=== PATIENT | male | born 1980 | race Caucasian/White ===

== ENCOUNTER 2018-08-12 09:31 | Outpatient (REF) | payer MEDICARE, OTHER, SELFPAY ==
[2018-08-12 12:42] LABS: Abs Immature Grans 0.02 k/cumm (0.0-0.09); Absolute Basophil Count 0.07 k/cumm (0.0-0.2); Absolute Eosinophil Count 0.75 k/cumm (0.0-0.7); Absolute Lymphocyte Count 2.42 k/cumm (1.2-3.4); Absolute Monocyte Count 0.98 k/cumm (0.11-0.7); Absolute Neutrophil Count 6.08 k/cumm (1.2-6.7); Basophils % 0.7; Eosinophils % 7.3; HCT 45.6 % (40.0-50.0); HGB 15.3 g/dL (13.5-17.5); Immature Grans % 0.2; Lymphocytes % 23.4; Mean Corp. HGB Concentration 33.6 g/dL (32.0-36.0); Mean Corpuscular Hemoglobin 30.8 pg (27.0-33.0); Mean Corpuscular Volume 91.9 fL (80-95); Mean Platelet Volume 10.5 fL (8.0-11.0); Monocytes % 9.5; Neutrophils % 58.9; Platelet Count 219 x1000/uL (130-400); RBC 4.96 m/cumm (4.50-6.00); RBC Distribution Width 13.1 % (11.8-14.1); White Blood Cell Count 10.32 k/cumm (4.4-10.8)
[2018-08-12 13:06] LABS: ALT 30 U/L (12-78); AST 18 U/L (15-37); Albumin 3.9 g/dL (3.4-5.0); Alkaline Phosphatase 81 U/L (46-116); Anion Gap 7.2 mmol/L (3-11); BUN 15 mg/dL (7-18); Bilirubin, Total 0.5 mg/dL (0.2-1.0); CO2 26.8 mmol/L (21.0-32.0); CREATININE 1.44 mg/dL (0.70-1.30); Calcium 9.1 mg/dL (8.5-10.1); Chloride 106 mmol/L (98-107); Estimated GFR 55.51 (mL/min/1.73m2); Glucose 83 mg/dL (70-100); Magnesium 1.4 mg/dL (1.8-2.4); PHOSPHORUS 2.8 mg/dL (2.6-4.7); Potassium 4.7 mmol/L (3.5-5.1); Sodium 140 mmol/L (136-145); Uric Acid 5.3 mg/dL (3.5-7.2)
== END 2018-08-12 09:51 ==
LOC: NCHCN 09:31
PROVIDERS: PCP Nurse Practitioner Family; Visit Provider Nurse Practitioner Family
DX: J98.4 Other disorders of lung (principal); I26.99 Other pulmonary embolism without acute cor pulmonale; N18.5 Chronic kidney disease, stage 5; Z94.0 Kidney transplant status
CPT/HCPCS: 80053; 83735; 84100; 84550; 85025

== ENCOUNTER 2018-10-07 16:41 | Outpatient (REF) | payer MEDICARE, OTHER, SELFPAY ==
[2018-10-07 21:34] LABS: Abs Immature Grans 0.02 k/cumm (0.0-0.09); Absolute Basophil Count 0.05 k/cumm (0.0-0.2); Absolute Eosinophil Count 0.76 k/cumm (0.0-0.7); Absolute Lymphocyte Count 2.51 k/cumm (1.2-3.4); Absolute Neutrophil Count 5.98 k/cumm (1.2-6.7); Basophils % 0.5; Eosinophils % 7.4; HCT 44.6 % (40.0-50.0); HGB 15.1 g/dL (13.5-17.5); Immature Grans % 0.2; Lymphocytes % 24.6; Mean Corp. HGB Concentration 33.9 g/dL (32.0-36.0); Mean Corpuscular Hemoglobin 31.4 pg (27.0-33.0); Mean Corpuscular Volume 92.7 fL (80-95); Mean Platelet Volume 10.5 fL (8.0-11.0); Monocytes % 8.8; Neutrophils % 58.5; Platelet Count 258 x1000/uL (130-400); RBC 4.81 m/cumm (4.50-6.00); White Blood Cell Count 10.22 k/cumm (4.4-10.8)
[2018-10-07 21:46] LABS: PROTEIN 25.3 mg/dL (0.0-11.9)
[2018-10-07 21:49] LABS: ALT 29 U/L (12-78); AST 20 U/L (15-37); Alkaline Phosphatase 67 U/L (46-116); Anion Gap 9.2 mmol/L (3-11); BUN 15 mg/dL (7-18); Bilirubin, Total 0.4 mg/dL (0.2-1.0); CO2 26.8 mmol/L (21.0-32.0); CREATININE 1.43 mg/dL (0.70-1.30); Calcium 9.1 mg/dL (8.5-10.1); Chloride 106 mmol/L (98-107); Cholesterol 123 mg/dL (50-200); Estimated GFR 55.65 (mL/min/1.73m2); Glucose 85 mg/dL (70-100); HDL Cholesterol 41 mg/dL (40-60); LDL CHOLESTEROL 66 mg/dL (<100); Magnesium 1.3 mg/dL (1.8-2.4); Potassium 4.4 mmol/L (3.5-5.1); Sodium 142 mmol/L (136-145); Total Protein 6.8 g/dL (6.4-8.2); Triglyceride 113 mg/dL (30-150)
[2018-10-07 21:59] LABS: Albumin 3.7 g/dL (3.4-5.0); Uric Acid 5.6 mg/dL (3.5-7.2)
[2018-10-07 23:10] LABS: Creatinine,Urine 151.23 mg/dL
[2018-10-09 11:40] LABS: Calcium (Random Urine) 14.6 mg/dl
[2018-10-09 11:45] LABS: Magnesium Random Urine 9.7 mg/dl
[2018-10-10 15:03] LABS: 25-Hydroxy D Total 28 ng/mL; 25-Hydroxy D2 <4.0 ng/mL; 25-Hydroxy D3 28 ng/mL
== END 2018-10-07 17:01 ==
LOC: NCHCN 16:41
PROVIDERS: PCP Nurse Practitioner Family; Visit Provider Nurse Practitioner Family
DX: I10 Essential (primary) hypertension (principal); Z94.0 Kidney transplant status; Z79.01 Long term (current) use of anticoagulants
CPT/HCPCS: 80053; 80061; 82306; 83721; 83735; 82340; 82565; 84105; 84156; 84550; 85025

== ENCOUNTER 2018-10-08 16:46 | Outpatient (CLI) | payer MEDICARE, OTHER, SELFPAY ==
[2018-10-10 09:34] LABS: Parathyroid Hormone,Intact 87 pg/ml (19-88)
[2018-10-10 13:39] LABS: Tacrolimus 7.2 ng/ml
== END 2018-10-08 17:06 ==
PROVIDERS: PCP Nurse Practitioner Family; Visit Provider Nurse Practitioner Family
DX: N18.5 Chronic kidney disease, stage 5 (principal); Z94.0 Kidney transplant status; Z51.81 Encounter for therapeutic drug level monitoring; Z79.899 Other long term (current) drug therapy
CPT/HCPCS: 36415; 80197; 83970

== ENCOUNTER 2018-12-30 00:34 | Outpatient (CLI) | payer OTHER, MEDICARE, SELFPAY ==
--- NOTE | 2018-12-30 09:29 | DI.CT_ITS ---
SYMPTOM/DIAGNOSIS: PULMONARY NODULE, J98.4, TOBACCO ABUSE, F17.[address]: CT scan of the chest was performed following intravenous contrast administration. The pulmonary arteries are not well opacified to assess for evidence of pulmonary embolic disease. The thoracic aorta is of normal caliber. No aneurysmal dilatation is seen. Heart size is within normal limits. No significant pericardial effusion is present. No significant thoracic adenopathy is identified. The soft tissue in the anterior mediastinum appears stable. No significant pleural effusion or pneumothorax is identified. There are a few tiny blebs seen within the lungs. No pulmonary nodules are identified. The previously noted nodular density in the left lingula may have represented volume averaging. No acute infiltrates are seen. The tracheobronchial tree is unremarkable. No acute abnormalities are seen in the upper abdomen. The thoracic spine appears intact. IMPRESSION: No evidence of a pulmonary nodule or thoracic adenopathy.
[2018-12-30] MEDS: Omnipaque 350 MG/ML 100 ML BTL IJ (09:31)
== END 2018-12-30 00:54 ==
PROVIDERS: PCP Nurse Practitioner Family; Visit Provider Nurse Practitioner Family
DX: J98.4 Other disorders of lung (principal); F17.210 Nicotine dependence, cigarettes, uncomplicated
CPT/HCPCS: 71260; J3490

== ENCOUNTER 2019-01-06 09:13 | Outpatient (REF) | payer OTHER, MEDICARE, SELFPAY ==
[2019-01-06 12:42] LABS: Abs Immature Grans 0.02 k/cumm (0.0-0.09); Absolute Basophil Count 0.08 k/cumm (0.0-0.2); Absolute Eosinophil Count 0.74 k/cumm (0.0-0.7); Absolute Lymphocyte Count 2.04 k/cumm (1.2-3.4); Absolute Monocyte Count 0.89 k/cumm (0.11-0.7); Absolute Neutrophil Count 5.06 k/cumm (1.2-6.7); Basophils % 0.9; Eosinophils % 8.4; HCT 45.2 % (40.0-50.0); HGB 15.2 g/dL (13.5-17.5); Immature Grans % 0.2; Lymphocytes % 23.1; Mean Corp. HGB Concentration 33.6 g/dL (32.0-36.0); Mean Corpuscular Hemoglobin 31.1 pg (27.0-33.0); Mean Corpuscular Volume 92.4 fL (80-95); Mean Platelet Volume 10.6 fL (8.0-11.0); Monocytes % 10.1; Neutrophils % 57.3; Platelet Count 223 x1000/uL (130-400); RBC 4.89 m/cumm (4.50-6.00); RBC Distribution Width 12.9 % (11.8-14.1); White Blood Cell Count 8.83 k/cumm (4.4-10.8)
[2019-01-06 12:54] LABS: Bilirubin Negative (Negative); Blood Negative (Negative); Clarity Clear; Glucose Negative (Negative); Ketones Negative (Negative); Leukocyte Esterase Negative (Negative); Nitrite Negative (Negative); Urobilinogen 0.2 EU/dL (Up TO 0.2)
[2019-01-06 13:17] LABS: ALT 25 U/L (12-78); AST 19 U/L (15-37); Albumin 3.7 g/dL (3.4-5.0); Alkaline Phosphatase 77 U/L (46-116); Anion Gap 10.3 mmol/L (3-11); BUN 16 mg/dL (7-18); Bilirubin, Total 0.5 mg/dL (0.2-1.0); CO2 26.7 mmol/L (21.0-32.0); CREATININE 1.43 mg/dL (0.70-1.30); Chloride 103 mmol/L (98-107); Estimated GFR 55.65 (mL/min/1.73m2); Glucose 103 mg/dL (70-100); Magnesium 1.3 mg/dL (1.8-2.4); PHOSPHORUS 3.3 mg/dL (2.6-4.7); Potassium 4.3 mmol/L (3.5-5.1); Sodium 140 mmol/L (136-145); Total Protein 6.8 g/dL (6.4-8.2); Uric Acid 5.2 mg/dL (3.5-7.2)
[2019-01-06 13:31] LABS: COMMENT (LAB VIEW ONLY) 109.66 mg/dL; Microalb ug/mg Crea 113.4 ug/mg Cr
[2019-01-06 13:33] LABS: Bacteria Rare HPF (Negative); C & S Indicated? No; Casts Negative LPF (Negative); Crystals Negative HPF (Negative); Epithelial Cells Rare HPF (Negative); Mucus Negative (Negative); RBC Negative (0-2); WBC 0-2 HPF (0-5)
== END 2019-01-06 09:33 ==
LOC: NCHCN 09:13
PROVIDERS: PCP Nurse Practitioner Family; Visit Provider Nurse Practitioner Family
DX: I10 Essential (primary) hypertension (principal); Z94.0 Kidney transplant status
CPT/HCPCS: 80053; 81003; 81015; 82043; 82570; 83735; 84100; 84550; 85025

== ENCOUNTER 2019-03-17 11:48 | Outpatient (REF) | payer MEDICARE, SELFPAY ==
[2019-03-17 22:04] LABS: Magnesium 1.6 mg/dL (1.8-2.4)
== END 2019-03-17 12:08 ==
LOC: NCHCN 11:48
PROVIDERS: PCP Nurse Practitioner Family; Visit Provider Nurse Practitioner Family
DX: E83.42 Hypomagnesemia (principal); I10 Essential (primary) hypertension; N18.5 Chronic kidney disease, stage 5; I26.99 Other pulmonary embolism without acute cor pulmonale; F17.210 Nicotine dependence, cigarettes, uncomplicated; K30 Functional dyspepsia
CPT/HCPCS: 83735

== ENCOUNTER 2019-08-17 16:04 | Outpatient (CLI) | payer MEDICARE, SELFPAY ==
[2019-08-17 16:45] LABS: HCT 42.1 % (40.0-50.0); HGB 14.5 g/dL (13.5-17.5); Mean Corp. HGB Concentration 34.4 g/dL (32.0-36.0); Mean Corpuscular Hemoglobin 31.9 pg (27.0-33.0); Mean Corpuscular Volume 92.5 fL (80-95); Mean Platelet Volume 9.6 fL (8.0-11.0); Platelet Count 217 x1000/uL (130-400); RBC 4.55 m/cumm (4.50-6.00); RBC Distribution Width 12.8 % (11.8-14.1); White Blood Cell Count 13.55 k/cumm (4.4-10.8)
[2019-08-17 17:02] LABS: Bilirubin Negative (Negative); Blood Negative (Negative); Clarity Clear (Clear); Glucose Negative (Negative); Ketones Negative (Negative); Leukocyte Esterase Negative (Negative); Nitrite Negative (Negative); Specific Gravity 1.015 (1.005-1.025); Urobilinogen 0.2 EU/dL (Up TO 0.2)
[2019-08-17 17:04] LABS: COMMENT (LAB VIEW ONLY) 90.89 mg/dL; PROTEIN 14.9 mg/dL; Prot/Crea Ur Ratio 0.16
[2019-08-17 17:18] LABS: Cholesterol 117 mg/dL (50-200)
[2019-08-17 17:19] LABS: ALT 24 U/L (16-63); AST 17 U/L (15-37); Albumin 3.8 g/dL (3.4-5.0); Alkaline Phosphatase 73 U/L (46-116); Anion Gap 8.4 mmol/L (3-11); BUN 17 mg/dL (7-18); Bilirubin, Total 0.8 mg/dL (0.2-1.0); CO2 25.6 mmol/L (21.0-32.0); CREATININE 1.46 mg/dL (0.70-1.30); Calcium 8.7 mg/dL (8.5-10.1); Chloride 107 mmol/L (98-107); Estimated GFR 54.04 (mL/min/1.73m2); Glucose 86 mg/dL (70-100); Magnesium 1.4 mg/dL (1.8-2.4); PHOSPHORUS 2.6 mg/dL (2.6-4.7); Potassium 4.4 mmol/L (3.5-5.1); Sodium 141 mmol/L (136-145); Total Protein 6.6 g/dL (6.4-8.2); Uric Acid 5.5 mg/dL (3.5-7.2)
[2019-08-19 13:16] LABS: Tacrolimus 8.6 ng/ml
== END 2019-08-17 16:24 ==
PROVIDERS: PCP Nurse Practitioner Family; Visit Provider Internal Medicine Nephrology
DX: Z94.0 Kidney transplant status (principal); Z79.899 Other long term (current) drug therapy
CPT/HCPCS: 36415; 80053; 85027; 80197; 81003; 82465; 82565; 83735; 84100; 84156; 84550

== ENCOUNTER 2020-02-15 10:13 | Outpatient (CLI) | payer MEDICARE, BC, SELFPAY ==
--- NOTE | 2020-02-15 | DI.RAD_ITS ---
EXAM: XR CHEST 2V PA LATERAL CLINICAL HISTORY: ASTHMA INTERMITTENT MILD, J45.20, COUGH, R05 TECHNIQUE: 2D digital imaging was performed. COMPARISON: CHEST 2 VIEWS PA,LAT from 06/13/2018 CT chest w from 12/30/2018 FINDINGS: MEDIASTINUM: Normal. HEART: Normal. PULMONARY VASCULATURE: Normal. LUNGS: Clear. PLEURAL SPACE: No pleural effusion or pneumothorax. BONE:Normal. IMPRESSION: No acute pulmonary findings. DATA REPOSITORY: RADIATION DOSE DELIVERED:
== END 2020-02-15 10:33 ==
PROVIDERS: PCP Nurse Practitioner Family; Visit Provider Nurse Practitioner Family
DX: R05 Cough (principal); J45.20 Mild intermittent asthma, uncomplicated
CPT/HCPCS: 71046

== ENCOUNTER 2020-02-16 01:54 | Outpatient (CLI) | payer MEDICARE, BC, SELFPAY ==
[2020-02-16 16:58] LABS: HCT 45.6 % (40.0-50.0); HGB 15.7 g/dL (13.5-17.5); Mean Corp. HGB Concentration 34.4 g/dL (32.0-36.0); Mean Corpuscular Hemoglobin 31.3 pg (27.0-33.0); Mean Platelet Volume 9.6 fL (8.0-11.0); Platelet Count 218 x1000/uL (130-400); RBC 5.01 m/cumm (4.50-6.00); White Blood Cell Count 13.89 k/cumm (4.4-10.8)
[2020-02-16 17:23] LABS: PROTEIN 22.8 mg/dL
[2020-02-16 17:57] LABS: Cholesterol 153 mg/dL (<200)
[2020-02-16 17:58] LABS: ALT 44 U/L (16-63); AST 25 U/L (15-37); Alkaline Phosphatase 84 U/L (46-116); Anion Gap 9.3 mmol/L (3-11); BUN 18 mg/dL (7-18); Bilirubin, Total 1.2 mg/dL (0.2-1.0); CO2 28.7 mmol/L (21.0-32.0); CREATININE 1.61 mg/dL (0.70-1.30); Calcium 9.1 mg/dL (8.5-10.1); Chloride 103 mmol/L (98-107); Estimated GFR 48.27 (mL/min/1.73m2); Glucose 110 mg/dL (74-106); Magnesium 1.4 mg/dL (1.8-2.4); PHOSPHORUS 2.9 mg/dL (2.6-4.7); Potassium 3.8 mmol/L (3.5-5.1); Sodium 141 mmol/L (136-145); Uric Acid 7.4 mg/dL (3.5-7.2)
[2020-02-16 18:18] LABS: COMMENT (LAB VIEW ONLY) 83.57 mg/dL; Prot/Crea Ur Ratio 0.27
[2020-02-16 18:58] LABS: Bilirubin Negative (Negative); Blood Trace-intact (Negative); Clarity Clear (Clear); Glucose Negative (Negative); Ketones Negative (Negative); Leukocyte Esterase Negative (Negative); Nitrite Negative (Negative); Specific Gravity 1.015 (1.005-1.025); Urobilinogen 0.2 EU/dL (Up TO 0.2); pH 6.5 (5-8)
[2020-02-16 19:48] LABS: Bacteria Negative HPF (Negative); C & S Indicated? No; Casts Negative LPF (Negative); Crystals Negative HPF (Negative); Epithelial Cells Negative HPF (Negative); Mucus Negative (Negative); Other Cells Negative (Negative); RBC Negative HPF (0-2); WBC Negative HPF (0-5)
[2020-02-18 13:05] LABS: Tacrolimus 11.7 ng/mL (See Note)
== END 2020-02-16 02:14 ==
PROVIDERS: PCP Nurse Practitioner Family; Visit Provider Internal Medicine Nephrology
DX: Z94.0 Kidney transplant status (principal); Z79.899 Other long term (current) drug therapy; Z29.8 Encounter for other specified prophylactic measures
CPT/HCPCS: 36415; 80053; 85027; 80197; 81003; 81015; 82465; 82565; 83735; 84100; 84156; 84550

== ENCOUNTER 2020-09-30 04:52 | Outpatient (CLI) | payer BC, SELFPAY ==
[2020-09-30 17:04] LABS: HCT 43.1 % (40.0-50.0); HGB 14.5 g/dL (13.5-17.5); MCH 31.8 pg (27.0-33.0); MCHC 33.6 % (32.0-36.0); MCV 94.5 fL (80-95); MPV 9.7 fL (8.0-11.0); Platelet Count 219 10^3/uL (130-400); RBC 4.56 10^6/uL (4.36-5.78); RDW 12.6 % (11.8-14.1); RDW-SD 43.4 fL; Reticulocyte 1.3 % (0.5-2.4)
[2020-09-30 18:13] LABS: Creatinine,Urine 66.08 mg/dL
[2020-09-30 18:14] LABS: PROTEIN 25.6 mg/dL
[2020-09-30 18:27] LABS: ALT 27 U/L (16-63); AST 17 U/L (15-37); Albumin 3.9 g/dL (3.4-5.0); Alkaline Phosphatase 75 U/L (46-116); BUN 20 mg/dL (7-18); Bilirubin, Total 0.5 mg/dL (0.2-1.0); CREATININE 1.54 mg/dL (0.70-1.30); Calcium 8.7 mg/dL (8.5-10.1); Chloride 104 mmol/L (98-107); Estimated GFR 50.54 (mL/min/1.73m2); Glucose 81 mg/dL (74-106); Magnesium 1.4 mg/dL (1.8-2.4); Potassium 4.3 mmol/L (3.5-5.1); Sodium 138 mmol/L (136-145); Uric Acid 6.2 mg/dL (3.5-7.2)
[2020-09-30 18:43] LABS: Bilirubin Negative (Negative); Blood Negative (Negative); Calculated LDL 61 mg/dL (<100); Cholesterol 132 mg/dL (<200); Clarity Clear (Clear); Glucose Negative (Negative); HDL Cholesterol 48 mg/dL (40-60); Ketones Negative (Negative); Leukocyte Esterase Negative (Negative); Nitrite Negative (Negative); Triglyceride 116 mg/dL (<150); Urobilinogen 0.2 EU/dL (Up TO 0.2); pH 6.5 (5-8)
[2020-09-30 19:04] LABS: Hemoglobin A1C 5.2 % (<5.7)
[2020-09-30 19:31] LABS: COMMENT (LAB VIEW ONLY) 67.55 mg/dL; Prot/Crea Ur Ratio 0.37
[2020-10-01 09:09] LABS: Vitamin D 25 Total 25.5 ng/ml (30-100)
[2020-10-03 09:55] LABS: Parathyroid Hormone,Intact 96 pg/mL (19-88)
[2020-10-03 10:03] LABS: Magnesium Random Urine 2.6 mg/dL (See Note)
[2020-10-03 12:56] LABS: Tacrolimus 9.7 ng/mL (See Note)
[2020-10-05 14:44] LABS: 25-Hydroxy D Total 29 ng/mL; 25-Hydroxy D2 <4.0 ng/mL; 25-Hydroxy D3 29 ng/mL
[2020-10-05 18:23] LABS: BK Virus PCR, Quant, U None Detected
== END 2020-09-30 05:12 ==
PROVIDERS: PCP Nurse Practitioner Family; Visit Provider Internal Medicine Nephrology
DX: Z94.0 Kidney transplant status (principal); Z79.899 Other long term (current) drug therapy; Z29.8 Encounter for other specified prophylactic measures; E55.9 Vitamin D deficiency, unspecified
CPT/HCPCS: 36415; 80053; 80061; 82306; 83735; 85027; 87799; 80197; 81003; 82565; 83036; 83970; 84100; 84105; 84156; 84550; 85045

== ENCOUNTER 2020-10-14 17:09 | Emergency (ER) | payer BC, SELFPAY ==
[2020-10-14 17:13] VITALS: BP 191/95; PULSE 92; RESP 18; TEMP 36.6; O2SAT 98
--- NOTE | 2020-10-14 18:07 | ED.GENADUL_ITS ---
Discharge Plan Disposition Patient Disposition: HOME Condition: Stable Discharge Details Clinical Impression: Finger laceration Primary Care Provider: Merly Thomas ED Provider: Darren Machuca Home Meds and New Rx's Prescriptions: Continued diltiazem HCl 120 MG capsule,extended release 24 hr 120 mg PO DAILY RF: 0 K-Phos No 2 1 EACH tablet 5 ea PO DAILY RF: 0 magnesium 250 MG tablet 500 mg PO DIRECTED RF: 0 prednisone 5 MG tablet 5 mg PO HS RF: 0 albuterol sulfate [Proventil HFA] 200 PUFF HFA aerosol inhaler 2 puff Inhalation PRN PRNRF: 0 Flovent HFA 120 PUFF HFA aerosol inhaler 2 puff Inhalation PRN PRNRF: 0 tacrolimus [Prograf] 1 MG capsule 2 mg PO BID RF: 0 metoprolol succinate [Toprol XL] 100 MG tablet extended release 24 hr 100 mg PO BID RF: 0 Eliquis 5 MG tablet 5 mg PO BID Qty: 70 RF: 0 Discharge Instructions Instructions: Finger Laceration (ED) Additional Instructions: Laceration thoroughly cleaned, irrigated, approximated using Dermabond. I will change the dry sterile dressing daily to visualize the laceration and look for signs of infection. Please watch for new or worsening symptoms and return immediately to the ER. Otherwise remove splint in approximately 10 days, Dermabond will begin to come off on its own. I do recommend contacting your primary care provider on Saturday to discuss outpatient wound evaluation. Medical Decision Making Tetanus status is 6 years old, given his renal transplant I would like to confirm that this is recommended. I did speak with telepharmacy regarding giving the Boostrix given his past medical history of renal transplant. There is no contraindication and they recommend giving the update Laceration was thoroughly cleaned and irrigated. It is well approximated not actively bleeding. We discussed closure options. Patient is comfortable with Dermabond, dry sterile dressing, finger splinting. Laceration was easily approximated using Dermabond without complication. Patient tolerated well. Dry sterile dressing and finger splint applied. Patient comfortable discharge and has no additional questions or concerns. Medical Records Medical records reviewed: Yes I reviewed the patient's medical records. HPI General Mode of arrival: ambulatory . Date/Time Provider Initiated Documentation: 10/14/20 17:26 . Limitations to Documentation: no limitations . Information obtained by: patient . HPI Narrative: This is a 40-year-old male, past medical history that includes kidney transplant, who is ambidextrous, pr esents with a laceration to his right index finger that he sustained just prior to arrival. He was cooking dinner and cut his finger accidentally with a sharp knife. He believes his tetanus status is within the last 10 years. We were able to confirm it was actually 2013. Patient reports mild pain at the site of laceration. He is able to fully range his finger. Denies any numbness, tingling, weakness. No other injuries or concerns Related Data Home Medications Medication Instructions Recorded Confirmed K-Phos No 2 5 ea PO DAILY 06/18/15 10/14/20 diltiazem HCl 120 mg PO DAILY 06/18/15 10/14/20 magnesium 500 mg PO DIRECTED 06/18/15 10/14/20 Flovent HFA 2 puff INHALATION PRN PRN 10/10/16 10/14/20 albuterol sulfate [Proventil HFA] 2 puff INHALATION PRN PRN 10/10/16 10/14/20 prednisone 5 mg PO HS 10/10/16 10/14/20 tacrolimus [Prograf] 2 mg PO BID 06/13/18 10/14/20 Eliquis 5 mg PO BID #70 tab 06/14/18 10/14/20 metoprolol succinate [Toprol XL] 100 mg PO BID 06/14/18 10/14/20 Previous Rx's Medication Instructions Recorded Eliquis 5 mg PO BID #70 tab 06/14/18 Allergies Allergy/AdvReac Type Severity Reaction Status Date / Time iohexol AdvReac Severe VOMITED Verified 10/14/20 17:17 IMMEDIATELY General Stated Complaint: Laceration SONIA: 3 Review of Systems Constitutional Constitutional: Denies weakness Musculoskeletal Musculoskeletal: Denies arthralgias, Denies numbness and Denies tingling Integumentary/Breasts Skin/Breast: Denies erythema Neurologic Neurologic: Denies numbness, Denies tingling and Denies weakness [facility] Social History Smoking/Tobacco Use Status: Former Tobacco Use Smoking risk assessment performed?: Yes Alcohol Intake: former Drug use: Never Substance use type: does not use Do you feel safe at home: Yes Do you feel safe in your relationship?: Yes Exam Const General: cooperative, healthy appearing, comfortable and no acute distress Orientation: alert and awake [facility] Head: normal to inspection, normocephalic and atraumatic Eyes General: appearance normal, both eyes and all related structures Conjunctivae: conjunctivae normal Sclera: sclerae normal Neck Neck: normal visual inspection, trachea midline and supple Resp Effort & Inspection: normal respiratory effort and able to speak in complete sentences Cardio Rate: regular rate Rhythm: regular rhythm Skin General skin exam: no rashes or lesions noted Neuro General: patient alert, patient awake, moves all extremities and no focal motor deficits Cognition: normal cognition Speech: speech normal Gait: normal gait Motor: muscle tone normal throughout Sensory Exam: no sensory deficits noted Extrem General: full ROM and capillary refill normal Right upper extremity: full ROM and hand Details: laceration; no foreign bodies Hand/finger images: 1. 2 cm well approximated, not actively bleeding laceration. Full range of motion. No obvious foreign body. Neuro, vascular, tendon intact. Psych Appearance: grossly normal Mental Status: mental status grossly normal Course Vital Signs Vital signs: Vital Signs Temperature 36.6 C 10/14/20 17:13 Pulse 92 H 10/14/20 17:13 Respiratory Rate 18 10/14/20 17:13 Blood Pressure 191/95 H 10/14/20 17:13 Pulse Oximetry 98 10/14/20 17:13 Temperature 36.6 C 10/14/20 17:13 Pulse 92 H 10/14/20 17:13 Respiratory Rate 18 10/14/20 17:13 Respiratory Effort Non-Labored 10/14/20 17:20 Blood Pressure 191/95 H 10/14/20 17:13 Blood Pressure Position Sitting 10/14/20 17:13 Pulse Oximetry 98 10/14/20 17:13 Oxygen Delivery Method Room Air 10/14/20 17:13 Oxygen Flow Rate 0 10/14/20 17:13 Pain Level 4 10/14/20 17:13
== END 2020-10-14 18:25 | disposition home or self-care (01) ==
LOC: ER 18:12
PROVIDERS: Emergency Provider Physician Assistant; PCP Nurse Practitioner Family
DX: S61.210A Laceration without foreign body of right index finger without damage to nail, initial encounter (principal); W26.0XXA Contact with knife, initial encounter; Z94.0 Kidney transplant status
CPT/HCPCS: 12001

== ENCOUNTER 2020-12-13 02:27 | Outpatient (CLI) | payer BC, SELFPAY ==
[2020-12-13 08:04] LABS: HCT 44.4 % (40.0-50.0); HGB 15.1 g/dL (13.5-17.5); MCH 31.6 pg (27.0-33.0); MCV 92.9 fL (80-95); MPV 9.8 fL (8.0-11.0); Platelet Count 207 10^3/uL (130-400); RBC 4.78 10^6/uL (4.36-5.78); RDW 12.4 % (11.8-14.1); RDW-SD 42.9 fL; WBC 11.97 10^3/uL (4.4-10.8)
[2020-12-13 08:08] LABS: Bilirubin Negative (Negative); Blood Negative (Negative); Clarity Clear (Clear); Glucose Negative (Negative); Ketones Negative (Negative); Leukocyte Esterase Negative (Negative); Nitrite Negative (Negative)
[2020-12-13 08:16] LABS: Bacteria Negative HPF (Negative); Crystals Negative HPF (Negative); Epithelial Cells Rare HPF (Negative); RBC 0-2 HPF (0-2); WBC 0-2 HPF (0-5)
[2020-12-13 08:17] LABS: C & S Indicated? No; Casts Negative LPF (Negative); Mucus Trace (Negative)
[2020-12-13 08:48] LABS: PROTEIN 45.4 mg/dL
[2020-12-13 08:49] LABS: COMMENT (LAB VIEW ONLY) 160.65 mg/dL; Prot/Crea Ur Ratio 0.28
[2020-12-13 08:55] LABS: Cholesterol 121 mg/dL (<200)
[2020-12-13 09:07] LABS: ALT 33 U/L (16-63); AST 16 U/L (15-37); Albumin 3.6 g/dL (3.4-5.0); Alkaline Phosphatase 80 U/L (46-116); Anion Gap 11.4 mmol/L (3-11); BUN 15 mg/dL (7-18); Bilirubin, Total 0.7 mg/dL (0.2-1.0); CO2 22.6 mmol/L (21.0-32.0); CREATININE 1.4 mg/dL (0.70-1.30); Calcium 8.7 mg/dL (8.5-10.1); Chloride 105 mmol/L (98-107); Estimated GFR 56.42 (mL/min/1.73m2); Glucose 112 mg/dL (74-106); Magnesium 1.6 mg/dL (1.8-2.4); PHOSPHORUS 3.1 mg/dL (2.6-4.7); Potassium 4.4 mmol/L (3.5-5.1); Sodium 139 mmol/L (136-145); Total Protein 6.7 g/dL (6.4-8.2); Uric Acid 6.4 mg/dL (3.5-7.2)
[2020-12-14 13:12] LABS: Tacrolimus 11.5 ng/mL (See Note)
== END 2020-12-13 02:28 | disposition home or self-care (01) ==
LOC: LBO 02:27
PROVIDERS: PCP Nurse Practitioner Family; Visit Provider Internal Medicine Nephrology
DX: Z94.0 Kidney transplant status (principal); Z79.899 Other long term (current) drug therapy; Z29.8 Encounter for other specified prophylactic measures
CPT/HCPCS: 36415; 80053; 85027; 80197; 81003; 81015; 82465; 82565; 83735; 84100; 84156; 84550

== ENCOUNTER 2020-12-14 02:09 | Outpatient (CLI) | payer BC, SELFPAY ==
--- NOTE | 2020-12-14 15:15 | DI.CT_ITS ---
EXAM: CT CHEST WO CLINICAL HISTORY: PULMONARY NODULE, J98.4,SMOKER,H/O KIDNEY TRANSPLANT,F/U CT 06/13/18 TECHNIQUE: Imaging Protocol: Axial computed tomography images with coronal and sagittal reformatted images were created and reviewed CONTRAST MATERIAL: Noncontrast COMPARISON: CT CHEST FOR PULMONARY EMBOLUS from 06/13/2018 CT CHEST FOR PULMONARY EMBOLUS from 06/13/[address] chest w from 12/30/2018 FINDINGS: Tracheobronchial tree: Patent where visualized. Mediastinum and Lina: No dominant adenopathy or fluid collection. Pulmonary parenchyma: No consolidation or dominant measurable mass. No architectural distortion. Th ere are scattered tiny bilateral nodules mainly peripherally. Most measure 2-3 millimeters in size. The largest nodules in the anterior left lower lobe near the fissure measuring 5 x 2.5 cm. The prev ious nodule is felt to represent a seen at the 2018 exam may have represented a vessel branch point. Pleura: No effusion or pneumothorax. Heart: The heart is not dilated. No coronary artery calcifications are seen. Aorta: Thoracic aorta non-dilated. Upper abdomen: Atrophic right kidney. Left kidney not visualized. Lymph nodes: Within normal limits. Bones: Normal. Soft tissues: Unremarkable. IMPRESSION: Scattered tiny pulmonary nodules. The largest measures 5 millimeters in greatest dimension. If the patient is at high risk for lung cancer, a low-dose screening CT could be performed in 1 year. RADIATION DOSE DELIVERED: 745.42mGy.cm Total DLP DATA REPOSITORY: All CT scans at this facility are submitted to the National Radiology Data Registry (NRDR) Dose Index Registry (DIR) with the [employer] ([employer]). RADIATION OPTIMIZATION: All CT scans at this facility use at least one of these dose optimization te chniques: automated exposure control; mA and/or kV adjustment per patient size (includes targeted exa ms where dose is matched to clinical indication); or iterative reconstruction.
== END 2020-12-14 02:10 ==
LOC: DI 02:09
PROVIDERS: PCP Nurse Practitioner Family; Visit Provider Nurse Practitioner Family
DX: R91.8 Other nonspecific abnormal finding of lung field; F17.210 Nicotine dependence, cigarettes, uncomplicated
CPT/HCPCS: 71250

== ENCOUNTER 2021-06-30 02:42 | Outpatient (CLI) | payer BC, SELFPAY ==
[2021-06-30 10:39] LABS: HCT 44.7 % (40.0-50.0); MCH 31.4 pg (27.0-33.0); MCHC 33.6 % (32.0-36.0); MCV 93.7 fL (80-95); MPV 9.6 fL (8.0-11.0); Platelet Count 217 10^3/uL (130-400); RBC 4.77 10^6/uL (4.36-5.78); RDW 12.5 % (11.8-14.1); RDW-SD 43.6 fL
[2021-06-30 10:47] LABS: Bilirubin Negative (Negative); Blood Negative (Negative); Clarity Clear (Clear); Glucose Negative (Negative); Ketones Negative (Negative); Leukocyte Esterase Negative (Negative); Nitrite Negative (Negative); Specific Gravity 1.025 (1.005-1.025); Urobilinogen 0.2 EU/dL (Up TO 0.2)
[2021-06-30 10:55] LABS: Epithelial Cells Negative HPF (Negative); RBC 0-2 HPF (0-2); WBC 0-2 HPF (0-5)
[2021-06-30 10:56] LABS: Bacteria Negative HPF (Negative); C & S Indicated? No; Casts Negative LPF (Negative); Crystals Negative HPF (Negative); Mucus Negative (Negative)
[2021-06-30 11:21] LABS: PROTEIN 32.4 mg/dL
[2021-06-30 11:26] LABS: COMMENT (LAB VIEW ONLY) 139.34 mg/dL; Prot/Crea Ur Ratio 0.23
[2021-06-30 11:45] LABS: Cholesterol 124 mg/dL (<200)
[2021-06-30 11:46] LABS: ALT 25 U/L (16-63); AST 16 U/L (15-37); Albumin 3.8 g/dL (3.4-5.0); Alkaline Phosphatase 76 U/L (46-116); Anion Gap 6.8 mmol/L (3-11); BUN 15 mg/dL (7-18); Bilirubin, Total 0.7 mg/dL (0.2-1.0); CO2 26.2 mmol/L (21.0-32.0); CREATININE 1.5 mg/dL (0.70-1.30); Calcium 9.3 mg/dL (8.5-10.1); Chloride 106 mmol/L (98-107); Glucose 94 mg/dL (74-106); PHOSPHORUS 3.2 mg/dL (2.6-4.7); Potassium 4.7 mmol/L (3.5-5.1); Sodium 139 mmol/L (136-145); Total Protein 6.9 g/dL (6.4-8.2); Uric Acid 6.5 mg/dL (3.5-7.2)
[2021-06-30 21:37] LABS: Magnesium 1.4 mg/dL (1.7-2.8)
[2021-07-01 11:56] LABS: Tacrolimus 10.3 ng/mL (See Note)
== END 2021-06-30 02:43 | disposition home or self-care (01) ==
LOC: LBO 02:42
PROVIDERS: PCP Nurse Practitioner Family; Visit Provider Internal Medicine Nephrology
DX: Z94.0 Kidney transplant status (principal); Z79.899 Other long term (current) drug therapy
CPT/HCPCS: 36415; 80053; 85027; 80197; 81003; 81015; 82465; 82565; 83735; 84100; 84156; 84550

== ENCOUNTER 2021-07-28 20:11 | Outpatient (REF) | payer BC, SELFPAY ==
[2021-07-30 15:40] LABS: COVID-19 RT-PCR UVMMC Result Negative (Negative)
== END 2021-07-28 20:12 | disposition home or self-care (01) ==
LOC: NCHCN 20:11
PROVIDERS: PCP Nurse Practitioner Family; Visit Provider Nurse Practitioner Family
DX: Z20.822 Contact with and (suspected) exposure to COVID-19 (principal); R06.89 Other abnormalities of breathing
CPT/HCPCS: U0003

== ENCOUNTER → 2021-07-29 12:01 | Outpatient (CLI) | payer BC, SELFPAY ==
--- NOTE | 2021-07-29 12:16 | DI.RAD_ITS ---
Exam(s) XR CHEST 2V PA LATERAL EXAM: XR CHEST 2V PA LATERAL CLINICAL HISTORY: respiratory complaints. TECHNIQUE: 2D digital imaging was performed. COMPARISON: CR CHEST 2 VIEWS PA,LAT from 06/13/2018 CR CHEST 2 VIEWS PA,LAT from 06/13/[address] chest w from 12/30/[address] chest w from 12/30/2018 CR XR CHEST 2V PA LATERAL from 02/15/2020 FINDINGS: Heart size is normal. The mediastinum is not widened. Left lung is clear. Subtle suggestion of possible mild infiltrate in the right upper lobe. No pleural effusions. No pneumothorax. IMPRESSION: Possible subtle infiltrate in the right upper lobe. No pleural effusions. DATA REPOSITORY: RADIATION DOSE DELIVERED:
--- NOTE | 2021-07-29 12:55 | DI.VRAD_ITS ---
PROCEDURE INFORMATION: Exam: XR Chest Exam date and time: 07/29/2021 12:05 PM Age: 40 years old Clinical indication: Other: Respiratory complaints TECHNIQUE: Imaging protocol: XR of the chest. Views: 2 views. COMPARISON: CT CHEST WO 12/14/2020 3:35 PM FINDINGS: Lungs: Questionable subtle increase in interstitial lung markings bilaterally. No focal airspace consolidation. Pleural spaces: No significant pleural effusions. No pneumothorax. Heart/Mediastinum: Cardiomediastinal silhouette is unremarkable. Bones/joints: No acute osseous abnormalities. IMPRESSION: 1. Questionable subtle increase in interstitial lung markings bilaterally. Mild interstitial edema cannot be excluded. 2. No focal airspace consolidation. Dictated and Authenticated by: Ollie Mike MD. Ordering:VIRGINIA Stroud MD
== END ==
LOC: LBN 12:02 → DI 12:03
PROVIDERS: PCP Nurse Practitioner Family; Visit Provider Nurse Practitioner Family
DX: R06.89 Other abnormalities of breathing (principal); R91.8 Other nonspecific abnormal finding of lung field
CPT/HCPCS: 71046

== ENCOUNTER 2021-09-25 03:27 | Outpatient (CLI) | payer BC, SELFPAY ==
[2021-09-25 14:03] LABS: Bilirubin Negative (Negative); Blood Negative (Negative); Clarity Clear (Clear); Glucose Negative (Negative); Ketones Negative (Negative); Leukocyte Esterase Negative (Negative); Nitrite Negative (Negative); Specific Gravity 1.025 (1.005-1.025); Urobilinogen 0.2 EU/dL (Up TO 0.2); pH 6.5 (5-8)
[2021-09-25 14:11] LABS: Bacteria Negative HPF (Negative); C & S Indicated? No; Casts 0-2 Hyaline LPF (Negative); Crystals Negative HPF (Negative); Epithelial Cells Rare HPF (Negative); Mucus Negative (Negative); RBC 0-2 HPF (0-2); WBC Negative HPF (0-5)
[2021-09-25 14:25] LABS: Creatinine,Urine 153.93 mg/dL
[2021-09-25 14:26] LABS: COMMENT (LAB VIEW ONLY) 153.93 mg/dL; Prot/Crea Ur Ratio 0.35
[2021-09-25 14:33] LABS: HCT 43.2 % (40.0-50.0); HGB 14.4 g/dL (13.5-17.5); MCH 31.4 pg (27.0-33.0); MCHC 33.3 % (32.0-36.0); MCV 94.3 fL (80-95); MPV 9.5 fL (8.0-11.0); Platelet Count 241 10^3/uL (130-400); RBC 4.58 10^6/uL (4.36-5.78); RDW 12.8 % (11.8-14.1); Reticulocyte 1.6 % (0.5-2.4); WBC 13.48 10^3/uL (4.4-10.8)
[2021-09-25 14:34] LABS: COMMENT (LAB VIEW ONLY) 152.49 mg/dL
[2021-09-25 14:38] LABS: Microalb ug/mg Crea 192.4 ug/mg Cr
[2021-09-25 14:41] LABS: Hemoglobin A1C 5.4 % (<5.7)
[2021-09-25 16:02] LABS: ALT 31 U/L (16-63); AST 17 U/L (15-37); Alkaline Phosphatase 86 U/L (46-116); Anion Gap 8.1 mmol/L (3-11); BUN 15 mg/dL (7-18); Bilirubin, Total 1.5 mg/dL (0.2-1.0); CO2 28.9 mmol/L (21.0-32.0); CREATININE 1.4 mg/dL (0.70-1.30); Chloride 103 mmol/L (98-107); Estimated GFR 56.13 (mL/min/1.73m2); Ferritin 338 ng/mL (26-388); Glucose 84 mg/dL (74-106); Magnesium 1.5 mg/dL (1.8-2.4); PHOSPHORUS 2.2 mg/dL (2.6-4.7); Potassium 4.1 mmol/L (3.5-5.1); Sodium 140 mmol/L (136-145); Total Protein 7.2 g/dL (6.4-8.2); Uric Acid 6.4 mg/dL (3.5-7.2)
[2021-09-25 16:13] LABS: Vitamin D 25 Total 25.5 ng/mL (30-100)
[2021-09-25 16:45] LABS: Iron 131 ug/dL (65-175)
[2021-09-25 16:47] LABS: Calculated LDL 63 mg/dL (<100); Cholesterol 142 mg/dL (<200); Folate 3.2 ng/mL (8.6-20.0); HDL Cholesterol 58 mg/dL (40-60); Triglyceride 106 mg/dL (<150); Vitamin B12 542 pg/mL (193-986)
[2021-09-26 08:56] LABS: Calcium (Random Urine) 8.8 mg/dL (See Note); Magnesium Random Urine 6.4 mg/dL (See Note); Phosphorus Urine 44.6 mg/dL (See Note)
[2021-09-26 10:10] LABS: Parathyroid Hormone,Intact 72 pg/mL (19-88)
[2021-09-26 12:34] LABS: Tacrolimus 6.4 ng/mL (See Note)
[2021-09-26 23:35] LABS: BKV DNA Detect/Quant, U Undetected IU/mL (Undetected)
[2021-09-27 12:34] LABS: 1,25-Dihydroxyvitamin D 21 pg/mL (18-64)
== END 2021-09-25 03:28 | disposition home or self-care (01) ==
LOC: LBO 03:27
PROVIDERS: PCP Nurse Practitioner Family; Visit Provider Internal Medicine Nephrology
DX: Z94.0 Kidney transplant status (principal); Z79.899 Other long term (current) drug therapy; E55.9 Vitamin D deficiency, unspecified
CPT/HCPCS: 36415; 80053; 80061; 82306; 83735; 85027; 87799; 80197; 81003; 81015; 82043; 82340; 82565; 82570; 82607; 82652; 82728; 82746; 83036; 83540; 83970; 84100; 84105; 84156; 84550; 85045

== ENCOUNTER 2022-09-12 03:32 | Outpatient (CLI) | payer BC, SELFPAY ==
[2022-09-12 14:11] LABS: HCT 45.1 % (40.0-50.0); HGB 15.2 g/dL (13.5-17.5); MCH 31.3 pg (27.0-33.0); MCHC 33.7 % (32.0-36.0); MCV 93 fL (80-95); MPV 9.7 fL (8.0-11.0); Platelet Count 224 10^3/uL (130-400); RBC 4.85 10^6/uL (4.36-5.78); RDW 12.2 % (11.8-14.1); WBC 15.39 10^3/uL (4.4-10.8)
[2022-09-12 14:12] LABS: Reticulocyte 1.2 % (0.5-2.4)
[2022-09-12 14:38] LABS: Bilirubin Negative (Negative); Blood Negative (Negative); Clarity Clear (Clear); Glucose Negative (Negative); Ketones Negative (Negative); Leukocyte Esterase Negative (Negative); Nitrite Negative (Negative); Specific Gravity >= 1.030 (1.005-1.025); Urobilinogen 0.2 EU/dL (Up TO 0.2); pH 6.5 (5-8)
[2022-09-12 14:54] LABS: COMMENT (LAB VIEW ONLY) 365.01 mg/dL; PROTEIN 78.8 mg/dL; Prot/Crea Ur Ratio 0.21
[2022-09-12 15:03] LABS: Bacteria Negative HPF (Negative); C & S Indicated? No; Casts 3-5 Hyaline LPF (Negative); Crystals Negative HPF (Negative); Epithelial Cells Rare HPF (Negative); Mucus Negative (Negative); RBC 0-2 HPF (0-2); WBC Negative HPF (0-5)
[2022-09-12 15:19] LABS: Vitamin D 25 Total 35.5 ng/mL (30-100)
[2022-09-12 15:31] LABS: ALT 28 U/L (16-63); AST 18 U/L (15-37); Albumin 3.8 g/dL (3.4-5.0); Alkaline Phosphatase 96 U/L (46-116); Anion Gap 5.8 mmol/L (3-11); BUN 21 mg/dL (7-18); Bilirubin, Total 1.3 mg/dL (0.2-1.0); CO2 30.2 mmol/L (21.0-32.0); CREATININE 1.6 mg/dL (0.70-1.30); Calcium 9.5 mg/dL (8.5-10.1); Calculated LDL 56 mg/dL (<100); Chloride 101 mmol/L (98-107); Cholesterol 106 mg/dL (<200); Estimated GFR 55.17 (mL/min/1.73m2); Glucose 92 mg/dL (74-106); HDL Cholesterol 40 mg/dL (40-60); Magnesium 1.3 mg/dL (1.8-2.4); Potassium 4.4 mmol/L (3.5-5.1); Sodium 137 mmol/L (136-145); Total Protein 7.3 g/dL (6.4-8.2); Triglyceride 51 mg/dL (<150)
[2022-09-12 15:54] LABS: PHOSPHORUS 2.7 mg/dL (2.6-4.7); Uric Acid 6.6 mg/dL (3.5-7.2)
[2022-09-12 16:05] LABS: Hemoglobin A1C 5.4 % (<5.7)
[2022-09-12 22:32] LABS: Parathyroid Hormone,Intact 53 pg/mL (19-88)
[2022-09-13 09:05] LABS: Calcium (Random Urine) 4.1 mg/dL (See Note); Magnesium Random Urine 5.1 mg/dL (See Note); Phosphorus Urine 133.3 mg/dL (See Note)
[2022-09-13 13:02] LABS: SARS-CoV-2 Spike Ab, Interp Positive; SARS-CoV-2 Spike Ab, Quant >250 U/mL
[2022-09-13 13:21] LABS: Tacrolimus 12.1 ng/mL (See Note)
[2022-09-13 21:42] LABS: BKV DNA Detect/Quant, U Undetected IU/mL (Undetected)
[2022-09-15 15:16] LABS: 1,25-Dihydroxyvitamin D 16 pg/mL (18-64)
== END 2022-09-12 03:33 | disposition home or self-care (01) ==
LOC: LBO 03:32
PROVIDERS: PCP Nurse Practitioner Family; Visit Provider Internal Medicine Nephrology
DX: E55.9 Vitamin D deficiency, unspecified (principal); Z94.0 Kidney transplant status; Z79.899 Other long term (current) drug therapy
CPT/HCPCS: 36415; 80053; 80061; 82306; 83735; 85027; 86769; 87799; 80197; 81003; 81015; 82340; 82565; 82652; 83036; 83970; 84100; 84105; 84156; 84550; 85045

== ENCOUNTER → 2023-07-04 00:56 | Outpatient (CLI) | payer BC, SELFPAY ==
--- NOTE | 2023-07-04 | DI.DEXA_ITS ---
Exam(s) XR DEXA BONE DENSITY W/WO IJEOMA EXAM: XR DEXA BONE DENSITY W/WO IJEOMA CLINICAL HISTORY: STATUS POST KIDNEY TRANSPLANT Z94.0 VIT D DEFICIENCY TECHNIQUE: COMPARISON: No exams were available for comparison FINDINGS: Lateral Spine Image: Unremarkable. No compression deformities identified. Left hip: Total T-Score: -0.1 Total Z-Score: 0.1 T- and Z-scores: Within normal limits. Lumbar Spine: Total T-Score: 0.8 Total Z-Score: 0.9 T- and Z-scores: Within normal limits. IMPRESSION: No evidence of osteoporosis.
== END ==
PROVIDERS: PCP Nurse Practitioner Family; Visit Provider Nurse Practitioner Family
DX: Z94.0 Kidney transplant status (principal); Z13.820 Encounter for screening for osteoporosis
CPT/HCPCS: 77080